=== PATIENT | female | born 1950 | race Caucasian/White ===

== ENCOUNTER → 2023-11-09 08:41 | Outpatient (REF) | payer BC, SELFPAY | LOC: RAD 08:41 | PROVIDERS: ATTENDING PHYSICIAN Internal Medicine Gastroenterology; FAMILY PHYSICIAN Family Medicine | DX: K82.4 Cholesterolosis of gallbladder (principal) | CPT/HCPCS: 76700 ==

== ENCOUNTER 2024-03-27 12:56 | Emergency (ER) | payer BC, SELFPAY ==
[2024-03-27 13:07] VITALS: BP 131/92
[2024-03-27 13:20] LABS: % Basophils 0.2 % (0-2); % Immature Granulocytes 0.3 % (0-0.5); % Lymphocytes 8.6 % (20.5-51.1); % Monocytes 5.9 % (1.7-9.3); Absolute Lymphocytes 0.9 10^3/uL (1.2-3.4); Absolute Monocytes 0.6 10^3/uL (0.1-0.6); Absolute Neutrophils 9.3 10^3/uL (1.4-6.5); Hemoglobin 12.6 g/dL (12.0-16.0); Mean Corpuscular Hgb 31.3 pg (27.0-31.0); Mean Corpuscular Volume 89.3 fL (81.0-99.0); Mean Platelet Volume 9.4 fL (7.4-10.4); Nucleated Red Blood Cells % 0 %; Platelet Count 332 10^3/uL (130-400); Red Blood Cell Count 4.03 10^6/uL (4.20-5.40); Red Cell Dist. Width 12.5 % (11.5-14.5); White Blood Cell Count 10.9 10^3/uL (4.8-10.8)
[2024-03-27 13:38] LABS: ALT (SGPT) 27 U/L (0-35); AST (SGOT) 28 U/L (14-36); Albumin 4.9 g/dl (3.5-5.0); Alkaline Phosphatase 104 U/L (38-126); Blood Urea Nitrogen 31 mg/dl (7-17); Calcium 10.8 mg/dl (8.4-10.2); Carbon Dioxide 26 mmol/L (22-30); Chloride 105 mmol/L (98-107); Glucose 115 mg/dl (70-99); Lipase 84 U/L (23-300); Potassium 4.5 mmol/L (3.5-5.1); Sodium 143 mmol/L (135-145); Total Bilirubin 0.6 mg/dl (0.2-1.3); Total Protein 7.5 g/dl (6.3-8.2); eGFR > 60.00
--- NOTE | 2024-03-27 15:38 | ED.GENMED ---
History of Present Illness
General
Chief Complaint: Abdominal Pain
Time Seen by Provider: 03/27/24 15:16
History of Present Illness
History of Present Illness:
Patient is a 73-year-old woman with history of hypertension, babesia on Mepron presenting to the emergency department with nausea vomiting diarrhea and abdominal pain. Patient states that last night at 4 PM she had Panera. Around 7 PM she had a
soup that was 4 days old from [employer]. About 4 hours later developed abdominal cramping pain. She then had multiple episodes of diarrhea that turned into emesis. They have stopped for the past 12 hours however now she has abdominal cramping
followed by blood per rectum. No stool. No more nausea or vomiting. She does feel dehydrated. No chest pain. This is never happened to her before. She does state that she has been decreasing her Mepron slowly. She did not have it for 4 days.
She is not on a blood thinner.
Past History
Past History
ED Past Medical History: HTN and Other (Lyme disease)
ED Past Surgical History: Orthopedic
Social History
Tobacco: Non-smoker
Phy Exam
Physical Exam
Physical Exam:
GENERAL: in no acute distress
HEENT: normocephalic, extraocular movements intact, dry oral mucosa
NECK: normal inspection
RESPIRATORY: no respiratory distress, clear to auscultation bilaterally
CARDIOVASCULAR: regular rate and rhythm
ABDOMEN/: soft, non-distended, diffuse tenderness to palpation,, no rebound or guarding
EXTREMITIES: non-tender, no edema/swelling
NEUROLOGIC: awake and alert, moves all extremities
SKIN: warm
Course
Orders/Labs/Results
Orders:
Orders
03/27/24 13:14
Complete Blood Count/With Diff Urgent
Comprehensive Metabolic Panel Urgent
Lipase Urgent
03/27/24 15:36
CT Abd/pelvis W Iv Cont Urgent
Comment:
Reason For Exam: abdominal pain bloody stool
0.9% Sodium Chloride 1000 ml [Nss] 1,000 ml IV BOLUS
Abnormal Lab Results
03/27/24
13:14
WBC 10.9 H 10^3/uL
(4.8-10.8)
RBC 4.03 L 10^6/uL
(4.20-5.40)
Hct 36.0 L %
(37.0-47.0)
MCH 31.3 H pg
(27.0-31.0)
Absolute Neuts (auto) 9.3 H 10^3/uL
(1.4-6.5)
Absolute Lymphs (auto) 0.9 L 10^3/uL
(1.2-3.4)
Neutrophils % 85.0 H %
(42.2-75.2)
Lymphocytes % 8.6 L %
(20.5-51.1)
BUN 31 H mg/dl
(7-17)
Glucose 115 H mg/dl
(70-99)
Calcium 10.8 H mg/dl
(8.4-10.2)
03/27/24 13:14
03/27/24 13:14
Vital Signs
Initial and Last Documented VS:
Initial Vital Signs
Temp Pulse Resp BP Pulse Ox
98.4 F 99 16 131/92 98
03/27/24 13:07 03/27/24 13:07 03/27/24 13:07 03/27/24 13:07 03/27/24 13:07
Last Documented Vital Signs
Temp Pulse Resp BP Pulse Ox
98.3 F 99 16 127/83 99
03/27/24 16:02 03/27/24 16:02 03/27/24 13:07 03/27/24 16:02 03/27/24 16:02
MDM/Problems Addressed
Differential Diagnosis Includes:
Patient is a 73-year-old woman presenting to the emergency department nausea vomiting diarrhea abdominal pain that has resolved but now with bright red blood per rectum. Vitals unremarkable and exam is reassuring. Differential is broad but
consists of viral gastroenteritis versus diverticulitis versus mepron side effect. Could be related to her hemorrhoids. Blood work obtained prior to elevation is unremarkable. Will obtain CT scan of her abdomen. Will give IV fluids.
*Critical Care Note
Total Time (30-74mins, 75-104mins- exclusive of procedures): Not Applicable
Update Note
Update Note:
Blood work shows normal hemoglobin. CT scan with colitis. Could also be IBD. Patient has never had bloody diarrhea before. Will place referral for rapid GI follow-up. Patient will also call her own GI doctor. Patient did not have any further
episodes of bloody bowel movements unable to obtain stool culture. Will give prescription for outpatient stool studies. Patient was able to tolerate p.o. Will discharge at this time with strict return precautions provided.
ED Attending Note
-
Portions of this chart may have been created with voice recognition software.� Occasional wrong word or��sound alike� substitutions may have occurred due to the inherent limitations of voice recognition software.
Discharge Plan
Departure
Patient Disposition: Home (Routine Discharge)
Date of Disposition: 03/27/24
Time of Disposition: 18:30
Patient with high blood pressure during this ER visit?: No
Discharge Problem:
Gastroenteritis, Colitis
Instructions: Bloody Stools, Adult ED
Prescriptions:
No Action
lisinopril 30 MG tablet
15 mg PO BID
lorazepam 1 MG tablet
1 mg PO PRN PRN (Reason: sleep)
cefepime 2,000 MG/12.5 ML recon soln
2,000 mg IV Q12H 0RF
dicyclomine 10 MG capsule
10 mg PO QIDPRN PRN (Reason: cramps) Qty: 14 0RF
acetaminophen 325 MG tablet
650 mg PO Q4HPRN PRN (Reason: mild pain/ADKINS/temp> 100.4F) Qty: 30 0RF
vancomycin [Vancocin] 125 MG capsule
125 mg PO Q6H Qty: 90 0RF
Rx Instructions:
Vancomycin 125mg po q6hr through 09/20/21, then bid through 10/10/2021
ondansetron HCl 4 MG tablet
4 mg PO Q8HPRN PRN (Reason: nausea and vomiting) Qty: 30 0RF
Lactobac 2-Bifido 1-S. therm [High Potency Probiotic] 1 CAP capsule
2 cap PO DAILY 0RF
meloxicam 15 MG tablet
15 mg PO DAILY Qty: 15 0RF
Referrals:
Reid Becerra DO [Family Provider] -
Activity Restrictions/Additional Instructions:
You were seen in the Emergency Department today for nausea vomiting diarrhea and abdominal pain as well as bloody stools. While you were here we performed blood work, which was reassuring. I did place a call to the GI office for follow-up. You may
also call your GI doctor for follow-up as well.
We would like for you to follow up with your primary care physician for further evaluation. If you experience fever, worsening of your symptoms, or develop any other new or concerning symptoms, please return to the Emergency Department immediately.
Please see the attached sheet for additional information.
Interventions
Interventions:
*Risk Screen - Suicide Last Done: 03/27/24 13:07
*General Assessment Last Done: 03/27/24 15:58
*Neglect/Abuse Screening Last Done: 03/27/24 13:07
*ED COVID-19 Vaccine History Last Done: 03/27/24 15:58
AS-Qernfk-Vcoorlazxv Assessment Last Done: 03/27/24 15:58
Discharge Date and Time
Print Language: GUYANESE
[2024-03-27 15:58] VITALS: BMI 24.7
[2024-03-27 16:02] VITALS: BP 127/83
[2024-03-27] MEDS: NSS 1000 IV (16:02)
[2024-03-27 18:54] VITALS: BP 136/71
== END 2024-03-27 19:27 | disposition home or self-care (01) ==
LOC: EMR 12:56
PROVIDERS: Emergency Medicine; EMERGENCY PHYSICIAN Student in an Organized Health Care Education/Training Program; FAMILY PHYSICIAN Family Medicine
DX: K52.9 Noninfective gastroenteritis and colitis, unspecified (principal); I10 Essential (primary) hypertension; Z79.899 Other long term (current) drug therapy; Z88.2 Allergy status to sulfonamides; Z88.8 Allergy status to other drugs, medicaments and biological substances
CPT/HCPCS: 99284; 96360; 74177; 80053; 83690; 85025; Q9967

== ENCOUNTER → 2024-10-31 08:33 | Outpatient (REF) | payer BC, SELFPAY | LOC: RAD 08:33 | PROVIDERS: ATTENDING PHYSICIAN Internal Medicine Gastroenterology; FAMILY PHYSICIAN Family Medicine | DX: K82.4 Cholesterolosis of gallbladder (principal) | CPT/HCPCS: 76700 ==

== ENCOUNTER → 2024-12-22 14:24 | Outpatient (REF) | payer BC, SELFPAY | LOC: MRI 14:24 | PROVIDERS: ATTENDING PHYSICIAN Internal Medicine Gastroenterology; FAMILY PHYSICIAN Family Medicine | DX: K76.0 Fatty (change of) liver, not elsewhere classified (principal) | CPT/HCPCS: 74183; 76391; A9575 ==

== ENCOUNTER 2025-02-09 06:23 | Day surgery (SDC) | payer BC, SELFPAY | END 2025-02-09 13:10 | disposition home or self-care (01) | LOC: GI 06:23 | PROVIDERS: ATTENDING PHYSICIAN Internal Medicine Gastroenterology | DX: D12.0 Benign neoplasm of cecum (principal); K63.5 Polyp of colon; K57.30 Diverticulosis of large intestine without perforation or abscess without bleeding; Q43.8 Other specified congenital malformations of intestine; R19.7 Diarrhea, unspecified; K64.9 Unspecified hemorrhoids | CPT/HCPCS: 45380; 88305 ==